=== PATIENT | male | born 1975 | race Caucasian/White ===

== ENCOUNTER 2016-11-14 18:41 | Emergency (ER) | payer OTHER ==
[2016-11-14 19:08] VITALS: BP 134/96
[2016-11-14] MEDS ORDERED: Eye Irrigation Solution 30 ML BOTTLE ONE (19:33)
[2016-11-14] MEDS ORDERED: Fluorescein Sodium TOPICAL* 1 MG TEST ONE (19:33)
[2016-11-14] MEDS ORDERED: Tetracaine 0.5% OPTH.SOL 4 ML* 1 DROP BTL ONE (19:39)
--- NOTE | 2016-11-14 19:42 | UC ---
Eye Complaint HPI - History of Current Complaint Chief Complaint: UCEye Stated Complaint: EYE COMPLAINT Time Seen by Provider: 11/14/16 19:22 Onset/Duration: Sudden Onset, Lasting Days - 1, Still Present Timing: Constant Severity Initially: Mild Severity Currently: Moderate Location of Injury: Eye Lid (upper) Character: Foreign Body Sensation Aggravating Factor(s): Blinking Alleviating Factor(s): Nothing Associated Signs And Symptoms: Positive: Negative Related History: Foreign Body - Risk Factors Penetrating Injury Risk Factor: Grinding Globe Rupture Risk Factors: Negative Acute Glaucoma Risk Factors: Negative - Allergies/Home Medications Allergies/Adverse Reactions: Allergies Allergy/AdvReac Type Severity Reaction Status Date / Time Bee Venom Allergy Hives, Verified 11/14/16 19:08 swollen airway Home Medications: Home Medications Stye Relief Drops 2 - 3 drop LEFT EYE SEE INSTRUCTIONS PRN 11/14/16 [History Confirmed 11/14/16] PMH/Surg Hx/FS Hx/Imm Hx Endocrine History Of: Denies: Diabetes, Thyroid Disease Cardiovascular History Of: Denies: Cardiac Disorders, Hypertension Respiratory History Of: Denies: COPD, Asthma GI/ History Of: Denies: Ulcer - Surgical History Surgical History: Yes Surgery Procedure, Year, and Place: Tonsils out at 10 years old - Family History Known Family History: Negative: Cardiac Disease, Hypertension, Diabetes - Social History Occupation: Employed Full-time Lives: With Family Alcohol Use: Weekly Substance Use Type: None Smoking Status (MU): Never Smoked Tobacco Have You Smoked in the Last Year: No - Immunization History Most Recent Tetanus Shot: UNKNOWN Review of Systems All Other Systems Reviewed And Are Negative: Yes Physical Exam Triage Information Reviewed: Yes Appearance: Well-Appearing, Well-Nourished, Pain Distress - mild pain regarding left eye Vital Signs: Initial Vital Signs Temp 96.3 F 11/14/16 18:55 Pulse 63 11/14/16 18:55 Resp 18 11/14/16 18:55 BP 134/96 11/14/16 18:55 Vital Signs Reviewed: Yes Eyes: Positive: Conjunctiva Inflamed - mild OS, Other: - FB in the left medial cornea. No FB under upper lid with lid inversion. Fluorescein stain is negative. ENT: Positive: Pharynx normal, TMs normal Neck exam: Normal Respiratory Exam: Normal Cardiovascular Exam: Normal Musculoskeletal Exam: Normal Neurological Exam: Normal Psychological Exam: Normal Skin Exam: Normal Procedures - Eye Procedure Alcaine Drops Administered: Yes Eye FB Removal: removal w/ needle - medial cornea. No rust ring. Eye Irrigated w/ Saline (ccs): 2 Antibiotic Ointment/Drps Admin: left eye Eye Complaint Course/Dx - Differential Dx/Diagnosis Differential Diagnosis/HQI/PQRI: Corneal Abrasion, Foreign Body, Glaucoma Provider Diagnoses: Embedded corneal foreign body. Removal corneal foreign body. Discharge - Discharge Plan Condition: Stable Disposition: HOME Patient Education Materials: Eye Foreign Body (ED), Erythromycin (Into the eye) Referrals: Cornel Reed MD [Primary Care Provider] - Shai Patel MD [Medical Doctor] - If Needed (if the eye pain is not a lot better tomorrow.) Additional Instructions: EYE OINTMENT USE: Wash hands. Place 1/4" strip across tip of finger. Pull lower lid down with the index finger and stabilize the ointment finger with the middle finger and scrape the ointment off on the lid. Pull the lid out and let go as you look down.
[2016-11-14] MEDS ORDERED: Erythromycin OPTH OINT* APPLIC OINT LEFT EYE ONE (19:49)
== END 2016-11-14 20:15 | disposition home or self-care (01) ==
LOC: UCCORT 18:41
DX: T15.02XA Foreign body in cornea, left eye, initial encounter (principal); X58.XXXA Exposure to other specified factors, initial encounter; Y93.89 Activity, other specified; Y92.9 Unspecified place or not applicable
CPT/HCPCS: 65220; 99212; A9270-GY; G0463

== ENCOUNTER 2017-03-09 17:53 | Emergency (ER) | payer BC, OTHER ==
[2017-03-09 18:49] VITALS: BP 115/85
--- NOTE | 2017-03-09 18:58 | UC ---
Dental HPI - HPI Summary HPI Summary: Pt c/o left upper molar pain. Pt reports tooth has been broken for "quite some time". Pt reports that has been trying to get a dental appointment but unable to get in for an appointment. - History of Current Complaint Chief Complaint: UCDentalProblem Stated Complaint: TOOTH PAIN Time Seen by Provider: 03/09/17 18:41 Hx Obtained From: Patient Onset/Duration: Gradual Onset, Lasting Days Severity: Moderate Aggravating: Chewing Alleviating: Nothing Related History: Swelling - Allergies/Home Medications Allergies/Adverse Reactions: Allergies Allergy/AdvReac Type Severity Reaction Status Date / Time Bee Venom Allergy Hives, Verified 03/09/17 18:49 swollen airway PMH/Surg Hx/FS Hx/Imm Hx Previously Healthy: Yes - Surgical History Surgical History: Yes Surgery Procedure, Year, and Place: Tonsils out at 10 years old - Family History Known Family History: Negative: Cardiac Disease, Hypertension, Diabetes - Social History Alcohol Use: Rare Substance Use Type: None Smoking Status (MU): Never Smoked Tobacco Have You Smoked in the Last Year: No - Immunization History Most Recent Tetanus Shot: UNKNOWN Review of Systems Constitutional: Negative Skin: Negative Eyes: Negative ENT: Other - dental pain, poor dentition Respiratory: Negative Cardiovascular: Negative Gastrointestinal: Negative Genitourinary: Negative Motor: Negative Neurovascular: Negative Musculoskeletal: Negative Neurological: Negative Psychological: Negative All Other Systems Reviewed And Are Negative: Yes Physical Exam Triage Information Reviewed: Yes Appearance: Well-Appearing Vital Signs: Initial Vital Signs Temp 98 F 03/09/17 18:44 Pulse 64 03/09/17 18:44 Resp 16 03/09/17 18:44 BP 115/85 03/09/17 18:44 Pulse Ox 99 03/09/17 18:44 Vital Signs Reviewed: Yes Eye Exam: Normal ENT Exam: Normal Dental Exam: Other Dental: Positive: Gross Decay/Caries @, Abscess @ - left upper last molar Neck exam: Normal Respiratory Exam: Normal Cardiovascular Exam: Normal Musculoskeletal Exam: Normal Neurological Exam: Normal Psychological Exam: Normal Skin Exam: Normal Dental Complaint Course/Dx - Differential Dx/Diagnosis Differential Diagnosis/Dx: Dental Abscess, Fractured Tooth Provider Diagnoses: dental abscess. fractured tooth Discharge - Discharge Plan Condition: Stable Disposition: HOME Prescriptions: Clindamycin Cap(NF) [Cleocin 300 mg Cap(NF)] 300 mg PO TID #30 cap Patient Education Materials: Dental Abscess (ED) Referrals: Cornel Reed MD [Medical Doctor] - Additional Instructions: Please follow up with your dental care provider for further treatment for your current dental complaint.
== END 2017-03-09 19:06 | disposition home or self-care (01) ==
LOC: UCCORT 17:53
DX: K04.7 Periapical abscess without sinus (principal); K03.81 Cracked tooth
CPT/HCPCS: 99212; G0463